=== PATIENT | female | born 2000 | race Caucasian/White ===

== ENCOUNTER 2021-04-27 10:11 | Outpatient (CLI) | payer BC, SELFPAY ==
--- NOTE | ~2021-04-27 | US_ITS ---
EXAMINATION: US pelvic complete w TV DATE: 04/27/2021 11:18 INDICATION: Dysmenorrhea Comparison:No prior studies for comparison. TECHNIQUE: Multiple transabdominal and endovaginal sonographic images of the pelvis performed. FINDINGS: The uterus measures 7.1 x 3.1 x 4.1 cm. The endometrium divides at the fundus, compatible with septate uterus. The endometrial complex measur es 8 mm. The right ovary measures 2.9 x 2.2 x 1.8 cm and the left ovary measures 2.6 x 1.7 x 1.9 cm.. There a re small follicles in each ovary. Normal doppler signal in both ovaries. There is free fluid in the pelvis. There are no abnormal masses seen on either side. IMPRESSION: 1. Endometrial division at the fundus, compatible with septate uterus. This is best seen on the trans verse images. Reviewed, dictated and finalized at location A. IMPRESSION: 1. Endometrial division at the fundus, compatible with septate uterus. This is best seen on the transverse images.
== END 2021-04-27 10:12 | disposition home or self-care (01) ==
LOC: ANHIMG 10:16
PROVIDERS: PCP Pediatrics; Visit Provider Obstetrics & Gynecology
DX: N94.6 Dysmenorrhea, unspecified (principal)
CPT/HCPCS: 76830; 76856